=== PATIENT | female | born 1990 | race Caucasian/White ===

== ENCOUNTER 2018-04-02 01:22 | Emergency (ER) | payer OTHER ==
[~2018-04-02] VITALS: Ht 172.7 cm; Wt 74.8 kg
--- NOTE | 2018-04-02 01:51 | Emergency Room Report ---
History of Present Illness General Chief Complaint: Constipation Source: Patient Present Illness HPI Patient reports that she had liposuction last Thursday Reports that she has been taking magnesium citrate However remains constipated She feels that she can feel a hard stool But is not able to pass stool Denies any abdominal pain denies any chest pain Denies any vomiting Patient feels increased discomfort in the rectal area Allergies: Coded Allergies: No Known Allergies (Unverified , 04/02/18) Patient History Past Medical History: see triage record Pertinent Family History: none Last Menstrual Period: 03/24/2018 Now: No : 0 Para: 0 Reviewed Nursing Documentation: PMH: Agreed; PSxH: Agreed Nursing Documentation-PMH Past Medical History: No Stated History Review of Systems All Other Systems: negative except mentioned in HPI Physical Exam Vital Signs Date Time Temp Pulse Resp B/P (MAP) Pulse Ox O2 Delivery O2 Flow Rate FiO2 04/02/18 01:29 97.5 106 16 123/82 98 Room Air Sp02 EP Interpretation: reviewed, normal General Appearance: well appearing, no apparent distress Head: normocephalic, atraumatic Eyes: bilateral eye PERRL, bilateral eye EOMI ENT: normal pharynx Neck: full range of motion, supple Respiratory: lungs clear Cardiovascular #1: regular rate, rhythm Gastrointestinal: normal bowel sounds, non tender, other - Patient has abdominal dressing on Musculoskeletal: normal inspection Neurologic: alert, oriented x3 Skin: normal color, no rash Lymphatic: no adenopathy Medical Decision Making Diagnostic Impression: Primary Impression: Constipation ER Course Given the patient's history and presentation Consideration for bowel traction, constipation, ileus is made Patient's abdomen soft Low likelihood of bowel obstruction Patient's main discomfort is having difficulty passing stool Patient was provided with Fleet enema here in the emergency room There was minimal change Patient will require continued intervention as an outpatient process Patient was also highly encouraged to make contact with her specialist for reevaluation as well Patient is asked several times regarding further intervention the emergency room , I did discuss with her that initial treatment has been initiated, and that further outpatient intervention is required, patient reported that she felt I felt she was exaggerating her symptoms, however I reassured her that her symptoms are taken seriously, Fleet enema was provided in the emergency room an appropriate prescription was also provided Last Vital Signs Date Time Temp Pulse Resp B/P (MAP) Pulse Ox O2 Delivery O2 Flow Rate FiO2 10/26/18 01:29 97.5 106 16 123/82 98 Room Air Status: unchanged Disposition: HOME, SELF-CARE Condition: Stable Scripts [colace] No Conflict Check 1 SUPP RECTAL QID for 5 Days, #20 Prov: Yosef Mejia DO 04/02/18 Na Phos,M-B/Na Phos,Di-Ba* (FLEET ENEMA*) 133 Ml Enema 133 ML RECTAL BID, #4 AMP 0 Refills Prov: Yosef Mejia DO 04/02/18 Referrals: NOT CHOSEN IPA/MD,REFERRING (PCP) Additional Instructions: Patient is provided with the discharge instructions notified to follow up with primary doctor in the next 2-3 days otherwise return to the er with any worsening symptoms. Please note that this report is being documented using [employer] technology. This can lead to erroneous entry secondary to incorrect interpretation by the dictating instrument. Yosef Mejia DO Apr 02, 2018 01:51
[2018-04-02] MEDS ORDERED: Fleet's Enema 133ml RECTAL ONE (02:00)
[2018-04-02 02:34] VITALS: BP 116/80
[2018-04-02] MEDS ORDERED: colace RECTAL (03:02)
[2018-04-02] MEDS ORDERED: FLEET ENEMA133 ML RECTAL (03:02)
[2018-04-02 03:09] VITALS: BP 116/80
== END 2018-04-02 03:10 | disposition home or self-care (01) ==
LOC: EMR 01:41
DX: K59.00 Constipation, unspecified (principal)
CPT/HCPCS: 99284